=== PATIENT | male | born 1970 | race Caucasian/White ===

== ENCOUNTER 2024-12-03 11:46 | Emergency (ER) | payer OTHER ==
[~2024-12-03] VITALS: Ht 185.4 cm; Wt 82.6 kg
[2024-12-03] MEDS ORDERED: SODIUM CHLORIDE 0.9% 500 ML IV ONE (12:00)
[2024-12-03 12:14] LABS: HEMOGLOBIN 14.5 g/dL (12.0-18.0)
[2024-12-03 12:17] LABS: BASOPHILS 0.1 % (0-2); HEMATOCRIT 42.1 % (35.0-50.0); LYMPHOCYTES 5.7 % (24-44); MCH 32.5 (27-36); MCHC 34.5 g/dl (30-36); MCV 94.3 fl (81-99); MONOCYTES 12.3 % (0-12); NEUTROPHILS 81.9 % (39-80); PLATELET COUNT 148 K/uL (140-440); RBC 4.47 M/ul (4.3-5.7); RDW 12.7 (10.5-15.0)
[2024-12-03 12:29] LABS: ALBUMIN 3.6 g/dL (3.4-5.0); ALBUMIN/GLOBULIN RATIO 1.06 (1.1-2.4); ANION GAP 15.2 (7-21); BILIRUBIN, TOTAL 0.8 ng/dL (0.2-1.0); BUN/CREATININE RATIO 10.15 (6.0-28.6); CALCIUM 8.1 mg/dL (8.5-10.1); CREATININE, SERUM 1.28 mg/dL (0.70-1.30); POTASSIUM 4.2 mmol/L (3.5-5.1)
[2024-12-03 13:05] VITALS: BP 115/86
== END 2024-12-03 13:05 | disposition home or self-care (01) ==
LOC: ED 11:46
PROVIDERS: Emergency Medicine
DX: R55 Syncope and collapse (principal)
CPT/HCPCS: 36415; 71045; 80053; 85025; 99284-25; J7040